=== PATIENT | female | born 1950 | race Caucasian/White ===

== ENCOUNTER → 2016-05-31 | Outpatient (CLI) | payer BC | END | disposition home or self-care (01) | LOC: C.LABBFT 10:06 | PROVIDERS: ATTEND Internal Medicine | DX: Z11.59 Encounter for screening for other viral diseases (principal) ==

== ENCOUNTER → 2017-06-21 | Outpatient (CLI) | payer MEDICARE | END | disposition home or self-care (01) | LOC: C.LABBFT 13:22 | PROVIDERS: ATTEND Internal Medicine | DX: E55.9 Vitamin D deficiency, unspecified (principal); E53.8 Deficiency of other specified B group vitamins ==